=== PATIENT | male | born 1955 | race Two or more races ===

== ENCOUNTER 2020-11-09 09:39 | Day surgery (SDC) | payer OTHER ==
[~2020-11-09 09:39] MED LIST: COZAAR25 MG PO; FORTAMET1000 MG PO; HUM; LEVEMIR100 UNIT/1; LEVMIR; SIMVASTAT PO; SIMVASTATIN10 MG PO; TRICOR145 MG PO; [UNRECOGNIZED DRUG - OTHER]; [UNRECOGNIZED DRUG - OTHER] PO
== END 2020-11-09 19:07 | disposition home or self-care (01) ==
LOC: CIR.AMB 09:39
PROVIDERS: ATTEND Urology
DX: N47.1 Phimosis (principal); Z20.822 Contact with and (suspected) exposure to COVID-19